=== PATIENT | female | born 1975 | race Hispanic/Latino ===

== ENCOUNTER 2018-10-10 09:19 | Emergency (ER) | payer OTHER ==
[2018-10-10 09:46] LABS: BASOPHILS % (AUTO) 0.5 % (0.0-5.0); EOSINOPHILS % (AUTO) 2.2 % (0.0-8.0); HEMATOCRIT 39.3 % (36-48); LYMPHOCYTES % (AUTO) 35.9 % (21.0-51.0); MEAN CORPUSCULAR HEMOGLOBIN 27.9 pg (27.0-33.0); MEAN CORPUSCULAR HGB CONC 34.1 g/dL (32.0-36.0); MEAN CORPUSCULAR VOLUME 81.8 fL (79-99); MONOCYTES % (AUTO) 6.5 % (3.0-13.0); NEUTROPHILS % (AUTO) 54.9 % (40.0-77.0); NUCLEATED RED BLOOD CELLS 0.1 % (0.0-0.19); PLATELET COUNT (AUTO) 264 K/uL (130-400); RED BLOOD CELL COUNT(AUTO) 4.81 MIL/uL (4.00-5.50); RED CELL DISTRIBUTION WIDTH 14.6 % (11.0-15.5); WHITE BLOOD COUNT (AUTO) 7.7 K/uL (4.8-10.8)
[2018-10-10 09:53] LABS: CREATININE 0.6 mg/dL (0.5-1.5); POTASSIUM 3.9 mmol/L (3.5-5.1)
[2018-10-10 10:00] LABS: ALBUMIN 3.4 g/dL (3.5-5.0); BILIRUBIN,TOTAL 1.2 mg/dL (0.2-1.0); TOTAL PROTEIN, SERUM 7.5 g/dL (6.0-8.3)
[2018-10-10] MEDS ORDERED: KETOROLAC TROMETHAMINE 60 MG/2 ML VIAL ONE (10:03)
[2018-10-10] MEDS ORDERED: PREDNISONE 20 MG TABLET ONE (10:03)
[2018-10-10 10:10] LABS: INR 0.97 (0.85-1.15); PARTIAL THROMBOPLASTIN TIME 25.6 SEC (26.3-35.5); PROTHROMBIN TIME 10.2 SEC (9.6-11.6)
== END 2018-10-10 11:55 | disposition home or self-care (01) ==
LOC: EDH 09:19
DX: M54.12 Radiculopathy, cervical region (principal); M25.512 Pain in left shoulder; E11.9 Type 2 diabetes mellitus without complications; Z90.49 Acquired absence of other specified parts of digestive tract
CPT/HCPCS: 36415; 73030; 80053; 82550; 84484; 85025; 85610; 85730; 93005; 96374; 99284; J1885

== ENCOUNTER 2018-10-23 02:22 | Emergency (ER) | payer MEDICAID, OTHER ==
[2018-10-23] MEDS ORDERED: MORPHINE SULFATE 4 MG/1ML SYG ONE (02:45)
[2018-10-23] MEDS ORDERED: ONDANSETRON HCL 4 MG/2 ML VIAL ONE (02:45)
[2018-10-23 02:59] LABS: BASOPHILS % (AUTO) 0.3 % (0.0-5.0); EOSINOPHILS % (AUTO) 0.2 % (0.0-8.0); LYMPHOCYTES % (AUTO) 11.7 % (21.0-51.0); MEAN CORPUSCULAR HEMOGLOBIN 28.3 pg (27.0-33.0); MEAN CORPUSCULAR HGB CONC 33.9 g/dL (32.0-36.0); MEAN CORPUSCULAR VOLUME 83.4 fL (79-99); MONOCYTES % (AUTO) 1.1 % (3.0-13.0); NEUTROPHILS % (AUTO) 86.7 % (40.0-77.0); NUCLEATED RED BLOOD CELLS 0.1 % (0.0-0.19); PLATELET COUNT (AUTO) 266 K/uL (130-400); RED CELL DISTRIBUTION WIDTH 14.9 % (11.0-15.5); WHITE BLOOD COUNT (AUTO) 9.6 K/uL (4.8-10.8)
[2018-10-23 03:20] LABS: ALBUMIN 3.8 g/dL (3.5-5.0); BILIRUBIN,TOTAL 1.4 mg/dL (0.2-1.0); CREATININE 0.7 mg/dL (0.5-1.5); POTASSIUM 4.5 mmol/L (3.5-5.1)
[2018-10-23 03:30] LABS: BILIRUBIN,URINE Negative (NEGATIVE); COLOR,URINE Yellow (YELLOW); GLUCOSE, URINE (UA) >=1000 mg/dL (NEGATIVE); KETONES,URINE >=80 mg/dL (NEGATIVE); LEUKOCYTE ESTERASE ,URINE Negative (NEGATIVE); NITRATE,URINE Negative (NEGATIVE); OCCULT BLOOD,URINE Negative (NEGATIVE); PH,URINE 5.5 (5.0-8.0); PROTEIN,URINE Negative (NEGATIVE)
[2018-10-23 03:32] LABS: APPEARANCE,URINE CLEAR (CLEAR)
[2018-10-23 03:39] LABS: BACTERIA,URINE Rare /HPF (None Seen); RBC,URINE 0-1 /HPF (0-1); SQUAMOUS EPITHELIAL CELL,UR 0-2 /HPF (0-2); WBC,URINE None Seen /HPF (0-1); YEAST,URINE BUDDING Few /HPF (None Seen)
[2018-10-23] MEDS ORDERED: SODIUM CHLORIDE 0.9% 1000ML 1,000 ML IV ONE (03:50)
[2018-10-23] MEDS ORDERED: INSULIN HUMULIN R 100 UNIT/ML 3ML ONE ×3 (03:51→07:30)
[2018-10-23 04:08] LABS: ERYTHROCYTE SEDIMENTATION RATE 22 MM/HR (0-20)
[2018-10-23] MEDS ORDERED: KETOROLAC TROMETHAMINE 30MG/ML ONE (07:29)
[2018-10-23] MEDS ORDERED: CYCLOBENZAPRINE HCL 10 MG TABLET ONE (07:29)
== END 2018-10-23 08:30 | disposition home or self-care (01) ==
LOC: EDH 02:22
DX: G89.29 Other chronic pain (principal); M54.12 Radiculopathy, cervical region; M54.2 Cervicalgia; E11.9 Type 2 diabetes mellitus without complications; Z90.49 Acquired absence of other specified parts of digestive tract; Z98.890 Other specified postprocedural states
CPT/HCPCS: 36415; 70450; 71045; 72141; 80053; 81001; 81025; 82550; 82948 ×3; 84484; 85025; 85651; 93005; 96374; 96375; 96376; 99284; J1815 ×3; J1885; J2270; J2405; J7030

== ENCOUNTER 2019-03-26 17:57 | Emergency (ER) | payer MEDICAID, OTHER ==
[2019-03-26 18:16] LABS: BASOPHILS % (AUTO) 0.4 % (0.0-5.0); EOSINOPHILS % (AUTO) 0.5 % (0.0-8.0); HEMATOCRIT 38.6 % (36-48); LYMPHOCYTES % (AUTO) 21.2 % (21.0-51.0); MEAN CORPUSCULAR HEMOGLOBIN 27.2 pg (27.0-33.0); MEAN CORPUSCULAR HGB CONC 33.4 g/dL (32.0-36.0); MEAN CORPUSCULAR VOLUME 81.5 fL (79-99); NEUTROPHILS % (AUTO) 71.9 % (40.0-77.0); PLATELET COUNT (AUTO) 392 K/uL (130-400); RED BLOOD CELL COUNT(AUTO) 4.73 MIL/uL (4.00-5.50); RED CELL DISTRIBUTION WIDTH 15.8 % (11.0-15.5); WHITE BLOOD COUNT (AUTO) 13.5 K/uL (4.8-10.8)
[2019-03-26 18:28] LABS: CREATININE 0.8 mg/dL (0.5-1.5); POTASSIUM 3.8 mmol/L (3.5-5.1)
[2019-03-26 18:32] LABS: ALBUMIN 3.8 g/dL (3.5-5.0); BILIRUBIN,DIRECT 0.2 mg/dL (0.0-0.3); BILIRUBIN,TOTAL 1.2 mg/dL (0.2-1.0); TOTAL PROTEIN, SERUM 8.4 g/dL (6.0-8.3)
[2019-03-26 18:45] LABS: APPEARANCE,URINE Cloudy (CLEAR); BILIRUBIN,URINE Negative (NEGATIVE); COLOR,URINE Dark Yellow (YELLOW); GLUCOSE, URINE (UA) >=1000 mg/dL (NEGATIVE); KETONES,URINE 15 mg/dL (NEGATIVE); LEUKOCYTE ESTERASE ,URINE Trace (NEGATIVE); NITRATE,URINE Negative (NEGATIVE); OCCULT BLOOD,URINE Large (NEGATIVE); PH,URINE 5.5 (5.0-8.0); PROTEIN,URINE POS 1+ mg/dL (NEGATIVE)
[2019-03-26 18:49] LABS: HCG,QUAL RESULT NEGATIVE (NEGATIVE)
[2019-03-26] MEDS ORDERED: SODIUM CHLORIDE 0.9% 1000ML 1,000 ML IV ONE (18:59)
[2019-03-26] MEDS ORDERED: KETOROLAC TROMETHAMINE 30MG/ML ONE (18:59)
[2019-03-26 19:17] LABS: BACTERIA,URINE Many /HPF (None Seen); RBC,URINE 0-1 /HPF (0-1)
[2019-03-26 19:18] LABS: SQUAMOUS EPITHELIAL CELL,UR Few /HPF (0-2)
[2019-03-26] MEDS ORDERED: ORPHENADRINE CITRATE 30 MG/ML ML ONE (21:01)
[2019-03-26] MEDS ORDERED: MORPHINE SULFATE 4 MG/1ML SYG ONE (21:01)
== END 2019-03-26 23:08 | disposition home or self-care (01) ==
LOC: EDH 17:57
DX: M54.13 Radiculopathy, cervicothoracic region (principal); E11.65 Type 2 diabetes mellitus with hyperglycemia; Z90.49 Acquired absence of other specified parts of digestive tract
CPT/HCPCS: 36415; 71046; 80048; 80076; 81001; 81025; 82550; 83690; 84484 ×2; 85025; 93005 ×2; 96361; 96374; 96375; 99285; J1885; J2270; J2360; J7030

== ENCOUNTER 2023-11-05 02:36 | Emergency (ER) | payer OTHER ==
[~2023-11-05] VITALS: Ht 154.9 cm; Wt 85.7 kg
[~2023-11-05 02:36] MED LIST: AEC81 PO; AMOX-426 PO; INSLAN SQ; LEVO150 PO; LISI20TA24 PO; SIMV-43 PO; SUCR1TAB PO
[2023-11-05 03:52] LABS: BASOPHILS # (AUTO) 0.02 K/uL (0.00-0.20); BASOPHILS % (AUTO) 0.2 % (0.0-5.0); EOSINOPHILS % (AUTO) 3.3 % (0.0-8.0); HEMATOCRIT 31.1 % (36-48); IMMATURE GRANULOCYTE ABSOLUTE 0.04 K/uL (0-1); LYMPHOCYTES # (AUTO) 2.4 K/uL (1.0-4.8); LYMPHOCYTES % (AUTO) 26.1 % (21.0-51.0); MEAN CORPUSCULAR HEMOGLOBIN 30.3 pg (27.0-33.0); MEAN CORPUSCULAR HGB CONC 35.4 g/dL (32.0-36.0); MEAN CORPUSCULAR VOLUME 85.7 fL (79-99); MONOCYTES # (AUTO) 0.6 K/uL (0.1-1.0); MONOCYTES % (AUTO) 6.1 % (3.0-13.0); NEUTROPHILS # (AUTO) 5.8 K/uL (1.8-7.7); NEUTROPHILS % (AUTO) 63.9 % (40.0-77.0); PLATELET COUNT (AUTO) 209 K/uL (130-400); RED BLOOD CELL COUNT(AUTO) 3.63 MIL/uL (4.00-5.50); RED CELL DISTRIBUTION WIDTH 13.7 % (11.0-15.5); WHITE BLOOD COUNT (AUTO) 9.1 K/uL (4.8-10.8)
[2023-11-05] MEDS: FAMOTIDINE 20MG VIAL IV ONE (03:52)
[2023-11-05] MEDS: MORPHINE 4 MG SYG IVP ONE (03:52)
[2023-11-05] MEDS: METOCLOPRAMIDE 10 MG/2 ML VIAL IVP ONE (03:52)
[2023-11-05 04:09] LABS: CREATININE 0.8 mg/dL (0.5-1.5); POTASSIUM 3.6 mmol/L (3.5-5.1)
[2023-11-05 04:16] LABS: ALBUMIN 3.2 g/dL (3.5-5.0); TOTAL PROTEIN, SERUM 8.1 g/dL (6.0-8.3)
[2023-11-05 08:47] LABS: APPEARANCE,URINE CLEAR (CLEAR); BILIRUBIN,URINE NEGATIVE (NEGATIVE); COLOR,URINE LIGHT-YELLOW (YELLOW); GLUCOSE, URINE (UA) NEGATIVE (NEGATIVE); KETONES,URINE NEGATIVE (NEGATIVE); LEUKOCYTE ESTERASE ,URINE 250 Leu/uL (NEGATIVE); NITRATE,URINE 2+ (NEGATIVE); OCCULT BLOOD,URINE NEGATIVE (NEGATIVE); PROTEIN,URINE NEGATIVE (NEGATIVE); UROBILINOGEN,URINE 0.2 mg/dL (0.2-1.0)
[2023-11-05 08:55] LABS: ADD UA MICROSCOPIC YES
[2023-11-05 08:57] LABS: BACTERIA,URINE MOD /HPF (None Seen); MUCUS,URINE RARE LPF (None Seen); SQUAMOUS EPITHELIAL CELL,UR RARE /HPF (0-2); TRANSITIONAL EPI CELLS,URINE RARE /HPF (None Seen)
[2023-11-05] MEDS ORDERED: LACT10SO9 PO (09:10)
[2023-11-05] MEDS ORDERED: CEPH500B PO (09:13)
[2023-11-05] MEDS: LACTULOSE 20 GM/30 ML UDCUP PO ONE (09:15)
[2023-11-05 09:18] VITALS: BP 133/73; PULSE 70; RESP 12; O2SAT 99
== END 2023-11-05 09:25 | disposition home or self-care (01) ==
LOC: EDH 02:36
DX: K56.41 Fecal impaction (principal); I10 Essential (primary) hypertension; E11.9 Type 2 diabetes mellitus without complications; E78.00 Pure hypercholesterolemia, unspecified; E03.9 Hypothyroidism, unspecified; Z79.82 Long term (current) use of aspirin; Z79.899 Other long term (current) drug therapy; Z90.49 Acquired absence of other specified parts of digestive tract; Z98.890 Other specified postprocedural states
CPT/HCPCS: 99285; 74176; 96374; 96375; 84484; 80053; 84703; 83690; 85025; 87077; 87088; 87186; 81001; 36415; 93005; J3490; J2270; J2765

== ENCOUNTER 2024-03-19 16:02 | Inpatient (IN) | payer OTHER ==
[~2024-03-19] VITALS: Ht 154.9 cm; Wt 86.0 kg
[~2024-03-19 16:02] MED LIST changes: +CEPH500B PO; +LACT10SO9 PO
[2024-03-19 16:29] LABS: BASOPHILS # (AUTO) 0.01 K/uL (0.00-0.20); BASOPHILS % (AUTO) 0.2 % (0.0-5.0); EOSINOPHILS # (AUTO) 0.08 K/uL (0.00-0.70); EOSINOPHILS % (AUTO) 1.8 % (0.0-8.0); HEMATOCRIT 33.9 % (36-48); IMMATURE GRANULOCYTE ABSOLUTE 0.03 K/uL (0-1); LYMPHOCYTES % (AUTO) 21.7 % (21.0-51.0); MEAN CORPUSCULAR HEMOGLOBIN 28.5 pg (27.0-33.0); MEAN CORPUSCULAR HGB CONC 34.8 g/dL (32.0-36.0); MEAN CORPUSCULAR VOLUME 81.9 fL (79-99); MONOCYTES % (AUTO) 0.5 % (3.0-13.0); NEUTROPHILS # (AUTO) 3.3 K/uL (1.8-7.7); NEUTROPHILS % (AUTO) 75.1 % (40.0-77.0); PLATELET COUNT (AUTO) 266 K/uL (130-400); RED BLOOD CELL COUNT(AUTO) 4.14 MIL/uL (4.00-5.50); RED CELL DISTRIBUTION WIDTH 13.2 % (11.0-15.5); WHITE BLOOD COUNT (AUTO) 4.4 K/uL (4.8-10.8)
[2024-03-19] MEDS: ONDANSETRON 4MG INJ IVP ONE (16:33)
[2024-03-19] MEDS: 0.9%NACL 1000ML 1,000 ML IV ONE (16:33)
[2024-03-19] MEDS: MORPHINE 2 MG SYG IVP ONE (16:33)
[2024-03-19 16:40] LABS: POTASSIUM 3.8 mmol/L (3.5-5.1)
[2024-03-19 16:44] LABS: BILIRUBIN,TOTAL 1.4 mg/dL (0.2-1.0)
[2024-03-19 17:13] LABS: BAND NEUTROPHILS % (MANUAL) 16 % (0-2); EOSINOPHILS % (MANUAL) 1 % (1-6); LYMPHOCYTES % (MANUAL) 28 % (22-44); MAN.DIFF COMMENT-IMPRESSION MANUAL DIFFERENTIAL; MONOCYTES % (MANUAL) 1 % (2-9); SEGMENTED NEUTROPHILS % 54 % (40-70); TOTAL CELLS COUNTED 100
[2024-03-19 17:14] LABS: PLATELET MORPHOLOGY COMMENT ADEQUATE
[2024-03-19] MEDS ORDERED: IOHEXOL 350 MG/ML 100ML INFUS..BTL IV ONE (17:21)
[2024-03-19] MEDS: LIDOCAINE HCL 2% VISCOUS 15 ML UDCUP PO ONE (18:12)
[2024-03-19] MEDS: DICYCLOMINE HCL 10 MG/5 ML ML PO ONE (18:12)
[2024-03-19] MEDS: MAG/ALUM/SIMETH 30 ML UDCUP PO ONE (18:12)
[2024-03-19] MEDS: VANCOMYCIN KIT 1 GM/250 ML IV.KIT IV ONE (18:35)
[2024-03-19] MEDS: ZOSYN 3.375GM +NS 50ML IV ONE (18:40)
[2024-03-19] MEDS ORDERED: VANCOMYCIN PROTOCOL PER PHARMACY IV PRN (20:00)
[2024-03-19] MEDS ORDERED: DEXTROSE 50%-WATER 50 ML DISP.SYRIN IV PRN (20:00)
[2024-03-19] MEDS ORDERED: GLUCAGON 1MG KIT 1 MG ML IM PRN (20:00)
[2024-03-19] MEDS ORDERED: ACETAMINOPHEN 325 MG TAB PO PRN (20:00)
[2024-03-19] MEDS: 0.9%NACL 1000ML 1,000 ML IV SCH (21:14)
[2024-03-19] MEDS: VANCOMYCIN 1G/250ML KIT 250 ML IV ONE (21:15)
[2024-03-19] MEDS: ACETAMINOPHEN 325 MG TAB PO PRN (21:18)
[2024-03-19] MEDS: FAMOTIDINE 20MG VIAL IV SCH (21:19)
[2024-03-19 22:15] VITALS: BP 90/51; PULSE 113; RESP 22
[2024-03-19] MEDS: ONDANSETRON 4MG INJ IV PRN (22:25)
[2024-03-19] MEDS: MECLIZINE HCL 25 MG TABLET PO ONE (22:25)
[2024-03-19] MEDS ORDERED: INSLAN SQ (22:31)
[2024-03-19] MEDS ORDERED: INSU200I SQ (22:31)
[2024-03-19 23:00] VITALS: O2SAT 98
[2024-03-20] VITALS (8 sets, daily range): BP systolic 90–109; BP diastolic 53–59; PULSE 87–109; RESP 18–22; O2SAT 97–98
[2024-03-20] MEDS: INSULIN HUMULIN R 100 UNIT/ML 3ML SQ SCH (01:14)
[2024-03-20] MEDS: ZOSYN 3.375GM+NS 50ML 50 ML IV SCH (01:14)
[2024-03-20] MEDS: ZOSYN 3.375GM+NS 50ML 50 ML ONE (01:15)
[2024-03-20 03:51] LABS: BASOPHILS # (AUTO) 0.03 K/uL (0.00-0.20); BASOPHILS % (AUTO) 0.2 % (0.0-5.0); EOSINOPHILS # (AUTO) 0.15 K/uL (0.00-0.70); EOSINOPHILS % (AUTO) 0.8 % (0.0-8.0); HEMATOCRIT 25.3 % (36-48); IMMATURE GRANULOCYTE ABSOLUTE 0.14 K/uL (0-1); LYMPHOCYTES # (AUTO) 0.5 K/uL (1.0-4.8); LYMPHOCYTES % (AUTO) 2.7 % (21.0-51.0); MEAN CORPUSCULAR HEMOGLOBIN 28.6 pg (27.0-33.0); MEAN CORPUSCULAR VOLUME 84.1 fL (79-99); MONOCYTES # (AUTO) 0.7 K/uL (0.1-1.0); MONOCYTES % (AUTO) 3.8 % (3.0-13.0); NEUTROPHILS # (AUTO) 16.5 K/uL (1.8-7.7); NEUTROPHILS % (AUTO) 91.7 % (40.0-77.0); PLATELET COUNT (AUTO) 164 K/uL (130-400); RED BLOOD CELL COUNT(AUTO) 3.01 MIL/uL (4.00-5.50); RED CELL DISTRIBUTION WIDTH 13.6 % (11.0-15.5); WHITE BLOOD COUNT (AUTO) 17.9 K/uL (4.8-10.8)
[2024-03-20 04:06] LABS: HEMOGLOBIN A1C 8.5 % (4.0-6.0)
[2024-03-20 04:20] LABS: ALBUMIN 2.4 g/dL (3.5-5.0); CREATININE 1.1 mg/dL (0.5-1.0); POTASSIUM 3.6 mmol/L (3.5-5.1); THYROID STIMULATING HORMONE 0.78 uIU/mL (0.36-3.74)
[2024-03-20] MEDS: MAGNESIUM 2GM PREMIX 50ML 50 ML IV PRN (04:30)
[2024-03-20] MEDS: POTASSIUM CHLORIDE 20MEQ/100ML 100 ML IV PRN (04:31)
[2024-03-20 04:56] LABS: ERYTHROCYTE SEDIMENTATION RATE 71 MM/HR (0-20)
[2024-03-20 07:12] LABS: APPEARANCE,URINE CLOUDY (CLEAR); BILIRUBIN,URINE NEGATIVE (NEGATIVE); COLOR,URINE YELLOW (YELLOW); GLUCOSE, URINE (UA) NEGATIVE (NEGATIVE); KETONES,URINE NEGATIVE (NEGATIVE); LEUKOCYTE ESTERASE ,URINE 500 Leu/uL (NEGATIVE); NITRATE,URINE NEGATIVE (NEGATIVE); OCCULT BLOOD,URINE LARGE (NEGATIVE); PROTEIN,URINE 30 mg/dL (NEGATIVE)
[2024-03-20 07:15] LABS: ADD UA MICROSCOPIC YES
[2024-03-20 07:25] LABS: BACTERIA,URINE FEW /HPF (None Seen); MUCUS,URINE RARE LPF (None Seen); RBC,URINE 51-100 /HPF (0-1); SQUAMOUS EPITHELIAL CELL,UR RARE /HPF (0-2); TRANSITIONAL EPI CELLS,URINE RARE /HPF (None Seen); WBC,URINE 51-100 /HPF (0-1)
[2024-03-20] MEDS: VANCOMYCIN 1G/250ML KIT 250 ML IV SCH (08:30)
[2024-03-20] MEDS ORDERED: COMPOUND IV REFRIGERATED 1 EACH IVSOLN MISC PRN (09:30)
[2024-03-20] MEDS ORDERED: COMPOUND IV MISC 1 EACH IVSOLN MISC PRN (09:30)
[2024-03-20] MEDS: MEROPENEM 1 GM in 0.9%NACL 100ML 100 ML IVPB SCH (11:30)
[2024-03-20] MEDS: 0.9%NACL 1000ML 1,000 ML IV ONE (11:36)
[2024-03-20] MEDS: 0.9%NACL 1000ML 1,000 ML IV SCH (13:45)
[2024-03-20] MEDS: DiphenhydrAMINE HCL 50 MG/ML VIAL IV PRN (15:52)
[2024-03-20] MEDS: KETOROLAC 15MG/ML VIAL (15MG/ML) IV PRN (15:54)
[2024-03-20] MEDS: PROCHLORPERAZINE 10MG/2ML INJ IV PRN (15:57)
[2024-03-20] MEDS ORDERED: LACE ASSESSMENT (SCORE > 11) MISC SCH (18:00)
[2024-03-20] MEDS ORDERED: PHARMACY COMMUNICATION MISC SCH (18:00)
[2024-03-21] VITALS (8 sets, daily range): BP systolic 111–133; BP diastolic 61–83; PULSE 68–104; RESP 18–20; O2SAT 98
[2024-03-21] MEDS: TOPIRAMATE 25 MG TABLET PO SCH (02:32)
[2024-03-21] MEDS: MORPHINE 2 MG SYG IV PRN (05:31)
[2024-03-21 08:09] LABS: BASOPHILS # (AUTO) 0.04 K/uL (0.00-0.20); BASOPHILS % (AUTO) 0.2 % (0.0-5.0); HEMATOCRIT 26.3 % (36-48); IMMATURE GRANULOCYTE ABSOLUTE 0.22 K/uL (0-1); LYMPHOCYTES # (AUTO) 1.6 K/uL (1.0-4.8); LYMPHOCYTES % (AUTO) 8.3 % (21.0-51.0); MEAN CORPUSCULAR HEMOGLOBIN 28.9 pg (27.0-33.0); MEAN CORPUSCULAR HGB CONC 34.6 g/dL (32.0-36.0); MEAN CORPUSCULAR VOLUME 83.5 fL (79-99); MONOCYTES # (AUTO) 0.9 K/uL (0.1-1.0); MONOCYTES % (AUTO) 4.7 % (3.0-13.0); NEUTROPHILS # (AUTO) 16.5 K/uL (1.8-7.7); NEUTROPHILS % (AUTO) 84.7 % (40.0-77.0); PLATELET COUNT (AUTO) 182 K/uL (130-400); RED BLOOD CELL COUNT(AUTO) 3.15 MIL/uL (4.00-5.50); RED CELL DISTRIBUTION WIDTH 14.3 % (11.0-15.5); WHITE BLOOD COUNT (AUTO) 19.4 K/uL (4.8-10.8)
[2024-03-21 08:19] LABS: CREATININE 0.8 mg/dL (0.5-1.0); POTASSIUM 3.7 mmol/L (3.5-5.1)
[2024-03-21 08:24] LABS: ALBUMIN 2.5 g/dL (3.5-5.0); BILIRUBIN,TOTAL 1.4 mg/dL (0.2-1.0); TOTAL PROTEIN, SERUM 6.9 g/dL (6.0-8.3); VANCOMYCIN TROUGH 4.9 UG/ML (10.0-20.0)
[2024-03-21] MEDS: INSULIN GLARGINE 100 UNITS/ML 10 ML VIAL SQ SCH (09:02)
[2024-03-21] MEDS: POLYETHYLENE GLYCOL 3350 17 GM POWD.PACK PO SCH (12:00)
[2024-03-21] MEDS: DOCUSATE SODIUM 100 MG CAP PO SCH (12:00)
[2024-03-21] MEDS ORDERED: PHARMACY COMMUNICATION MISC SCH (18:00)
[2024-03-21] MEDS: ENOXAPARIN SODIUM 40 MG/0.4 ML SYRINGE SQ SCH (18:34)
[2024-03-21] MEDS: INSULIN HUMULIN R 100 UNIT/ML 3ML SQ SCH (21:36)
[2024-03-22] VITALS (10 sets, daily range): BP systolic 137–161; BP diastolic 74–90; PULSE 73–97; RESP 16–20; O2SAT 98
[2024-03-22 08:10] LABS: HEMATOCRIT 25.2 % (36-48); MEAN CORPUSCULAR HEMOGLOBIN 28.8 pg (27.0-33.0); MEAN CORPUSCULAR HGB CONC 34.1 g/dL (32.0-36.0); MEAN CORPUSCULAR VOLUME 84.3 fL (79-99); RED BLOOD CELL COUNT(AUTO) 2.99 MIL/uL (4.00-5.50); RED CELL DISTRIBUTION WIDTH 13.7 % (11.0-15.5); WHITE BLOOD COUNT (AUTO) 15.9 K/uL (4.8-10.8)
[2024-03-22 08:20] LABS: CREATININE 0.8 mg/dL (0.5-1.0); POTASSIUM 3.9 mmol/L (3.5-5.1)
[2024-03-22] MEDS ORDERED: BUTALB/ACETAMINOPHEN/CAFFEINE 1 EACH TABLET PO PRN (10:00)
[2024-03-22] MEDS: CEFTRIAXONE 2GM VIAL IVPB SCH (10:09)
[2024-03-22] MEDS: LACTULOSE 20 GM/30 ML UDCUP PO SCH (10:09)
[2024-03-22] MEDS: PEG 3350/NA SULF,BICARB,CL/KCL 4000 ML SOLN PO SCH (19:11)
[2024-03-22] MEDS: SIMVASTATIN 20 MG TABLET PO SCH (20:42)
[2024-03-23] VITALS (7 sets, daily range): BP systolic 140–169; BP diastolic 63–87; PULSE 56–80; RESP 16–20; O2SAT 97
[2024-03-23 04:39] LABS: BASOPHILS # (AUTO) 0.05 K/uL (0.00-0.20); BASOPHILS % (AUTO) 0.4 % (0.0-5.0); EOSINOPHILS # (AUTO) 0.49 K/uL (0.00-0.70); EOSINOPHILS % (AUTO) 3.7 % (0.0-8.0); HEMATOCRIT 23.7 % (36-48); IMMATURE GRANULOCYTE ABSOLUTE 0.44 K/uL (0-1); LYMPHOCYTES # (AUTO) 3.2 K/uL (1.0-4.8); MEAN CORPUSCULAR HGB CONC 34.6 g/dL (32.0-36.0); MEAN CORPUSCULAR VOLUME 80.9 fL (79-99); MONOCYTES # (AUTO) 0.9 K/uL (0.1-1.0); MONOCYTES % (AUTO) 6.3 % (3.0-13.0); NEUTROPHILS # (AUTO) 8.4 K/uL (1.8-7.7); NEUTROPHILS % (AUTO) 62.3 % (40.0-77.0); PLATELET COUNT (AUTO) 234 K/uL (130-400); RED BLOOD CELL COUNT(AUTO) 2.93 MIL/uL (4.00-5.50); RED CELL DISTRIBUTION WIDTH 13.2 % (11.0-15.5); WHITE BLOOD COUNT (AUTO) 13.4 K/uL (4.8-10.8)
[2024-03-23 04:57] LABS: CREATININE 0.8 mg/dL (0.5-1.0); MAGNESIUM 1.5 mg/dL (1.80-2.40); PHOSPHORUS 3.3 mg/dL (2.5-4.9); POTASSIUM 3.7 mmol/L (3.5-5.1)
[2024-03-23] MEDS: LEVOTHYROXINE 150 MCG TABLET PO SCH (05:27)
[2024-03-23] MEDS ORDERED: IOHEXOL-350 50ML VIAL IV ONE (10:45)
[2024-03-24] VITALS (7 sets, daily range): BP systolic 137–165; BP diastolic 64–86; PULSE 54–77; RESP 18–20; O2SAT 95–98
[2024-03-24 05:28] LABS: BASOPHILS # (AUTO) 0.08 K/uL (0.00-0.20); BASOPHILS % (AUTO) 0.7 % (0.0-5.0); EOSINOPHILS # (AUTO) 0.51 K/uL (0.00-0.70); EOSINOPHILS % (AUTO) 4.4 % (0.0-8.0); HEMATOCRIT 24.7 % (36-48); IMMATURE GRANULOCYTE ABSOLUTE 1.03 K/uL (0-1); LYMPHOCYTES # (AUTO) 3.1 K/uL (1.0-4.8); LYMPHOCYTES % (AUTO) 26.9 % (21.0-51.0); MEAN CORPUSCULAR HEMOGLOBIN 28.9 pg (27.0-33.0); MEAN CORPUSCULAR HGB CONC 35.6 g/dL (32.0-36.0); MEAN CORPUSCULAR VOLUME 81.3 fL (79-99); MONOCYTES # (AUTO) 0.9 K/uL (0.1-1.0); NEUTROPHILS # (AUTO) 5.8 K/uL (1.8-7.7); NUCLEATED RED BLOOD CELLS 0.8 % (0.0-0.19); PLATELET COUNT (AUTO) 246 K/uL (130-400); RED BLOOD CELL COUNT(AUTO) 3.04 MIL/uL (4.00-5.50); RED CELL DISTRIBUTION WIDTH 12.8 % (11.0-15.5); WHITE BLOOD COUNT (AUTO) 11.5 K/uL (4.8-10.8)
[2024-03-24 05:34] LABS: CREATININE 0.8 mg/dL (0.5-1.0); MAGNESIUM 1.7 mg/dL (1.80-2.40); POTASSIUM 3.7 mmol/L (3.5-5.1)
[2024-03-24] MEDS: KCL 20 MEQ ERTAB PO PRN (06:19)
[2024-03-24] MEDS: NIFEDIPINE ER 30 MG TAB PO SCH (20:26)
[2024-03-25] VITALS: BP 162/85; PULSE 62; RESP 18
[2024-03-25 03:43] VITALS: BP 142/71; PULSE 77; RESP 18
[2024-03-25 04:08] LABS: BASOPHILS # (AUTO) 0.11 K/uL (0.00-0.20); BASOPHILS % (AUTO) 0.7 % (0.0-5.0); EOSINOPHILS # (AUTO) 0.47 K/uL (0.00-0.70); EOSINOPHILS % (AUTO) 3.2 % (0.0-8.0); HEMATOCRIT 28.8 % (36-48); IMMATURE GRANULOCYTE ABSOLUTE 1.76 K/uL (0-1); LYMPHOCYTES # (AUTO) 3.2 K/uL (1.0-4.8); LYMPHOCYTES % (AUTO) 21.9 % (21.0-51.0); MEAN CORPUSCULAR HGB CONC 34.4 g/dL (32.0-36.0); MEAN CORPUSCULAR VOLUME 81.4 fL (79-99); MONOCYTES % (AUTO) 6.7 % (3.0-13.0); NEUTROPHILS # (AUTO) 8.2 K/uL (1.8-7.7); NEUTROPHILS % (AUTO) 55.5 % (40.0-77.0); NUCLEATED RED BLOOD CELLS 0.5 % (0.0-0.19); PLATELET COUNT (AUTO) 290 K/uL (130-400); RED BLOOD CELL COUNT(AUTO) 3.54 MIL/uL (4.00-5.50); RED CELL DISTRIBUTION WIDTH 12.6 % (11.0-15.5); WHITE BLOOD COUNT (AUTO) 14.7 K/uL (4.8-10.8)
[2024-03-25 04:20] LABS: CREATININE 0.8 mg/dL (0.5-1.0); MAGNESIUM 1.6 mg/dL (1.80-2.40); POTASSIUM 3.5 mmol/L (3.5-5.1)
[2024-03-25 08:00] VITALS: BP 141/70; PULSE 69; RESP 18
[2024-03-25 08:55] VITALS: O2SAT 95
[2024-03-25 11:42] VITALS: BP 119/69; PULSE 73; RESP 18
== END 2024-03-25 15:00 | disposition home or self-care (01) | DRG 872 ==
LOC: EDH 16:02 → EDHIP 16:03 → 2AH 21:51 → 4CH 03-22 21:34
PROVIDERS: ADMIT Internal Medicine; ATTEND Internal Medicine
DX: A41.50 Gram-negative sepsis, unspecified (principal); N17.9 Acute kidney failure, unspecified; N13.6 Pyonephrosis; E44.1 Mild protein-calorie malnutrition; D64.9 Anemia, unspecified; B96.89 Other specified bacterial agents as the cause of diseases classified elsewhere; E83.42 Hypomagnesemia; E11.22 Type 2 diabetes mellitus with diabetic chronic kidney disease; E66.9 Obesity, unspecified; Z68.36 Body mass index [BMI] 36.0-36.9, adult; G43.909 Migraine, unspecified, not intractable, without status migrainosus; E03.9 Hypothyroidism, unspecified; B96.20 Unspecified Escherichia coli [E. coli] as the cause of diseases classified elsewhere; E78.00 Pure hypercholesterolemia, unspecified; I12.9 Hypertensive chronic kidney disease with stage 1 through stage 4 chronic kidney disease, or unspecified chronic kidney disease; N18.9 Chronic kidney disease, unspecified; Z79.2 Long term (current) use of antibiotics
CPT/HCPCS: 36415; 71045; 74177; 74400; 80048; 80053; 80061; 80202; 81001; 82948; 83036; 83605; 83690; 83735; 84100; 84145; 84443; 84484; 85025; 85027; 85651; 86140; 87040; 87086; 87186; 93005; 96375; 99291; G0378; J0696; J0780; J1200; J1650; J1815; J1885; J2185; J2270; J2405; J2543; J3370; J3475; J3480; J3490; Q9967

== ENCOUNTER 2025-01-20 02:46 | Emergency (ER) | payer SELFPAY ==
[~2025-01-20] VITALS: Ht 162.6 cm; Wt 90.7 kg
[~2025-01-20 02:46] MED LIST changes: -AEC81 PO; -AMOX-426 PO; -CEPH500B PO; +INSU200I SQ; -LACT10SO9 PO
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
[2025-01-20 06:19] VITALS: BP 140/73; PULSE 76; RESP 18; TEMP 98.6; O2SAT 99
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
== END 2025-01-20 06:20 | disposition home or self-care (01) ==
LOC: EDH 02:46
DX: S40.021A Contusion of right upper arm, initial encounter (principal); S00.03XA Contusion of scalp, initial encounter; R07.89 Other chest pain; M54.9 Dorsalgia, unspecified; M54.2 Cervicalgia; M79.602 Pain in left arm; M79.604 Pain in right leg; M79.605 Pain in left leg; E11.9 Type 2 diabetes mellitus without complications; E78.00 Pure hypercholesterolemia, unspecified; E03.9 Hypothyroidism, unspecified; I10 Essential (primary) hypertension; Z90.49 Acquired absence of other specified parts of digestive tract; Z79.899 Other long term (current) drug therapy; Y04.2XXA Assault by strike against or bumped into by another person, initial encounter; Y93.89 Activity, other specified; Y92.89 Other specified places as the place of occurrence of the external cause; Y99.8 Other external cause status
CPT/HCPCS: 70450; 71250; 74176; 99284